=== PATIENT | female | born 1960 | race Caucasian/White ===

== ENCOUNTER 2017-04-15 15:24 | Observation (INO) | payer MEDICAID ==
[2017-04-15 15:24] VITALS: BMI 34.5
--- NOTE | 2017-04-15 16:30 | ED PDOC ---
HPI: General Adult Time Seen by Provider: 04/15/17 15:59 Chief Complaint (Nursing): Chest Pain Chief Complaint (Provider): headache History Per: Patient History/Exam Limitations: no limitations Additional Complaint(s): 56yo female w/ hx chronic back pain, asthma comes to the ED reporting headache for 1 week. Also reports chest pain last night with associated intermittent whole body numbness and dry mouth. No fever, nausea or vomit. Past Medical History Reviewed: Historical Data, Nursing Documentation, Vital Signs Vital Signs: Last Vital Signs Temp 98.4 F 04/16/17 12:08 Pulse 86 04/16/17 12:08 Resp 18 04/16/17 12:08 BP 108/66 04/16/17 12:08 Pulse Ox 96 04/16/17 12:08 - Medical History PMH: Asthma, Back Problems, Gastritis, HTN - Surgical History Surgical History: Back Surgery, Cholecystectomy, Hernia Repair, Tonsillectomy - Family History Family History: States: Unknown Family Hx - Social History Current smoker - smoking cessation education provided: No Alcohol: None Drugs: Denies - Home Medications Home Medications: Ambulatory Orders Medication Instructions Recorded Albuterol HFA [Ventolin HFA 90 2 puff IH Q4H PRN 04/15/17 mcg/actuation (8 g)] Cyclobenzaprine [Flexeril] 10 mg PO BID 04/15/17 DULoxetine [Cymbalta] 30 mg PO HS 04/15/17 Diclofenac Sodium [Voltaren] 50 mg PO BID PRN 04/15/17 Fluticasone/Salmeterol 250/50 1 puff IH Q12H 04/15/17 [Advair Diskus 250/50] Gabapentin [Neurontin] 300 mg PO BID 04/15/17 Lisinopril [Zestril] 10 mg PO DAILY 04/15/17 Omeprazole 40 mg PO DAILY 04/15/17 oxyCODONE/Acetaminophen [Percocet 1 tab PO DAILY PRN 04/15/17 5/325 mg Tab] - Allergies Allergies/Adverse Reactions: Allergies Allergy/AdvReac Type Severity Reaction Status Date / Time latex Allergy RASH Verified 04/15/17 15:32 Review of Systems ROS Statement: Except As Marked, All Systems Reviewed And Found Negative Constitutional: Negative for: Fever ENT: Positive for: Other (dry mouth) Cardiovascular: Positive for: Chest Pain Gastrointestinal: Negative for: Nausea, Vomiting Neurological: Positive for: Weakness, Headache Physical Exam - Reviewed Nursing Documentation Reviewed: Yes Vital Signs Reviewed: Yes - Physical Exam Appears: Positive for: Well, Non-toxic, No Acute Distress Head Exam: Positive for: ATRAUMATIC, NORMAL INSPECTION, NORMOCEPHALIC Skin: Positive for: Warm, Dry Eye Exam: Positive for: EOMI, PERRL Cardiovascular/Chest: Positive for: Regular Rate, Rhythm Respiratory: Positive for: Normal Breath Sounds. Negative for: Rales, Rhonchi, Wheezing Gastrointestinal/Abdominal: Positive for: Soft. Negative for: Tenderness Extremity: Positive for: Normal ROM Neurologic/Psych: Positive for: Alert, Oriented - Laboratory Results Result Diagrams: 04/16/17 05:25 04/16/17 05:25 - ECG ECG: Positive for: Interpreted By Me, Viewed By Me ECG Rhythm: Positive for: Sinus Rhythm. Negative for: ST/T Changes Rate: 90 O2 Sat by Pulse Oximetry: 99 (RA) Pulse Ox Interpretation: Normal Medical Decision Making Medical Decision Makin CT Head w/o, CXR, Labs reassess. [address] cueva ending CT head result, reassessment. Disposition - Clinical Impression Clinical Impression: Chest pain - Patient ED Disposition Is Patient to be Admitted: Transfer of Care - Disposition Disposition: Transfer of Care Disposition Time: 17:00 Condition: STABLE Patient Signed Over To: Sonya Cueva Additional Comments - Additional Comments Additional Comments: Scribe Attestation: Documented by Robert Barbour acting as a scribe for Sree Bridges MD. Provider Scribe Attestation: All medical record entries made by the Scribe were at my direction and personally dictated by me. I have reviewed the chart and agree that the record accurately reflects my personal performance of the history, physical exam, medical decision making, and the department course for this patient. I have also personally directed, reviewed, and agree with the discharge instructions and disposition.
[2017-04-15 16:38] LABS: BASO # 0.1 K/uL (0.0-0.2); BASO % 0.9 % (0.0-2.0); EOS # 0.3 K/uL (0.0-0.7); EOS % 3.4 % (0.0-4.0); LYMPH # 2.5 K/uL (1.0-4.3); LYMPH % 26.9 % (20.0-40.0); MEAN CELL VOLUME 87.5 fl (81.0-99.0); MEAN CORPUSCULAR HGB CONC 33.1 g/dL (33.0-37.0); MEAN PLATELET VOLUME 9.1 fl (7.2-11.7); MONO # 0.7 K/uL (0.0-0.8); MONO % 7.1 % (0.0-10.0); NEUT # 5.8 K/uL (1.8-7.0); NEUT % 61.7 % (50.0-75.0); RED CELL DISTRIBUTION WIDTH 13.3 % (11.5-14.5); WHITE BLOOD COUNT 9.5 K/uL (4.8-10.8)
[2017-04-15 16:45] LABS: ALB/GLOB RATIO 1.5 (1.0-2.1); ALKALINE PHOSPHATASE 100 U/L (38-126); ALT/SGPT 37 U/L (9-52); AST/SGOT 26 U/L (14-36); BILIRUBIN,TOTAL 0.3 mg/dl (0.2-1.3); BLOOD UREA NITROGEN 14 mg/dl (7-17); CALCIUM 9.3 mg/dL (8.4-10.2); CARBON DIOXIDE 28 mmol/L (22-30); CHLORIDE 104 mmol/L (98-107); GFR AFRICAN-AMERICAN > 60; GLUCOSE,RANDOM 118 mg/dL (65-105); POTASSIUM 4.1 MMOL/L (3.6-5.0); SODIUM 142 mmol/l (132-148); TOTAL PROTEIN 7.2 G/DL (6.3-8.2)
--- NOTE | 2017-04-15 16:51 | ED PDOC ---
- Laboratory Results Result Diagrams: 04/15/17 16:20 - ECG O2 Sat by Pulse Oximetry: 99 (RA) Pulse Ox Interpretation: Normal Medical Decision Making Medical Decision Makin:00 Patient signed out to provider from Sree Bridges MD, pending labs, imaging studies, and reevaluation. Scribe Attestation: Documented by Robert Marquez, acting as a scribe for Angel Valentin MD. Provider Scribe Attestation: All medical record entries made by the Scribe were at my direction and personally dictated by me. I have reviewed the chart and agree that the record accurately reflects my personal performance of the history, physical exam, medical decision making, and the department course for this patient. I have also personally directed, reviewed, and agree with the discharge instructions and disposition.
--- NOTE | 2017-04-15 17:27 | CT ---
PROCEDURE: CT HEAD WITHOUT CONTRAST. HISTORY: headache COMPARISON: None available. TECHNIQUE: Axial computed tomography images were obtained through the head/brain without intravenous contrast. Radiation dose: Total exam DLP = 757.21 mGy-cm. This CT exam was performed using one or more of the following dose reduction techniques: Automated exposure control, adjustment of the mA and/or kV according to patient size, and/or use of iterative reconstruction technique. FINDINGS: HEMORRHAGE: No acute parenchymal, subarachnoid or extra-axial hemorrhage. Hemorrhage. BRAIN: No mass effect or edema. No significant atrophy or chronic microvascular ischemic changes. Minor vascular calcifications both carotid siphons VENTRICLES: No evidence of obstructive hydrocephalus CALVARIUM: Calvarium appears grossly intact. PARANASAL SINUSES: Unremarkable as visualized. No significant inflammatory changes. MASTOID AIR CELLS: Unremarkable as visualized. No inflammatory changes. OTHER FINDINGS: None. IMPRESSION: No acute intracranial hemorrhage.
--- NOTE | 2017-04-15 17:39 | ED PDOC ---
- Laboratory Results Result Diagrams: 04/15/17 16:20 04/15/17 16:20 - ECG O2 Sat by Pulse Oximetry: 99 (RA) - CT Scan/US CT head Other Rad Studies (CT/US): Radiology Report Reviewed (No acute intracranial hemorrhage.) Disposition - Clinical Impression Clinical Impression: Chest pain - POA Present On Arrival: None Core Measure Indicators: Chest Pain - Disposition Disposition: Hospitalized as Observation Patient Disposition Time: 17:39 Condition: STABLE Addendum Addendum: 04/15/17 17:00 Pt signed out by Dr. Bridges pending CT.
[2017-04-15] MEDS ORDERED: Oxycodone/Acetaminophen 5/325 mg Tab PO PRN (21:05)
[2017-04-15] MEDS: Fluticasone-Salmeterol 250-50mcg Diskus IH SCH (22:01)
[2017-04-16 04:47] VITALS: RESP 18
[2017-04-16] MEDS ORDERED: Pneumococcal 23-Valent Vaccine IM ONE (06:00)
[2017-04-16 06:59] LABS: BASO # 0.1 K/uL (0.0-0.2); BASO % 0.7 % (0.0-2.0); EOS # 0.4 K/uL (0.0-0.7); EOS % 3.7 % (0.0-4.0); LYMPH # 3.2 K/uL (1.0-4.3); LYMPH % 32.7 % (20.0-40.0); MEAN CELL VOLUME 87.9 fl (81.0-99.0); MEAN PLATELET VOLUME 9.4 fl (7.2-11.7); MONO # 0.7 K/uL (0.0-0.8); MONO % 7.1 % (0.0-10.0); NEUT # 5.5 K/uL (1.8-7.0); NEUT % 55.8 % (50.0-75.0); NRBC % 0.1 % (0.0-0.0); RED CELL DISTRIBUTION WIDTH 13.7 % (11.5-14.5); WHITE BLOOD COUNT 9.8 K/uL (4.8-10.8)
[2017-04-16 07:28] LABS: ALB/GLOB RATIO 1.5 (1.0-2.1); ALKALINE PHOSPHATASE 87 U/L (38-126); ALT/SGPT 36 U/L (9-52); AST/SGOT 40 U/L (14-36); BILIRUBIN,TOTAL 0.6 mg/dl (0.2-1.3); BLOOD UREA NITROGEN 14 mg/dl (7-17); CALCIUM 9.2 mg/dL (8.4-10.2); CARBON DIOXIDE 27 mmol/L (22-30); CHLORIDE 105 mmol/L (98-107); CHOLESTEROL 183 mg/dL (0-199); GFR AFRICAN-AMERICAN > 60; GLUCOSE,RANDOM 98 mg/dL (65-105); SODIUM 143 mmol/l (132-148)
[2017-04-16 08:01] LABS: T4 6.45 ug/dl (5.5-11.0)
[2017-04-16 08:15] LABS: THYROID STIMULATING HORMONE 1.26 mIU/ML (0.46-4.68)
--- NOTE | 2017-04-16 08:40 | CP.PCM.CON ---
History of Present Illness - History of Present Illness History of Present Illness: Full Note Dictated. Atypical chest pain No evidence of ACS Hypertension H/O GERD Chr Low Back Pain ( following a fall) May go home and be managed as an out pt. Past Patient History - Infectious Disease Hx of Infectious Diseases: None - Past Medical History & Family History Past Medical History?: Yes - Past Social History Smoking Status: Never Smoked - CARDIAC Hx Hypertension: Yes - PULMONARY Hx Asthma: Yes - MUSCULOSKELETAL/RHEUMATOLOGICAL Hx Falls: Yes - GASTROINTESTINAL Hx Gastritis: Yes - PSYCHIATRIC Hx Substance Use: No - SURGICAL HISTORY Hx Cholecystectomy: Yes Hx Tonsillectomy: Yes - ANESTHESIA Hx Anesthesia: Yes Hx Anesthesia Reactions: No Hx Malignant Hyperthermia: No Meds Allergies/Adverse Reactions: Allergies Allergy/AdvReac Type Severity Reaction Status Date / Time latex Allergy RASH Verified 04/15/17 15:32 - Medications Medications: Current Medications Cyclobenzaprine HCl (Flexeril) 10 mg PO BID [facility] Last Admin: 04/15/17 22:00 Dose: 10 mg Duloxetine HCl (Cymbalta) 30 mg PO HS [facility] Last Admin: 04/15/17 22:00 Dose: 30 mg Gabapentin (Neurontin) 300 mg PO BID [facility] Last Admin: 04/15/17 22:00 Dose: 300 mg Lisinopril (Zestril) 10 mg PO DAILY [facility] Oxycodone/Acetaminophen (Percocet 5/325 Mg Tab) 1 tab PO Q6 PRN PRN Reason: Pain, severe (8-10) Stop: 04/18/17 22:01 Last Admin: 04/15/17 21:59 Dose: 1 tab Pantoprazole Sodium (Protonix Ec Tab) 40 mg PO DAILY [facility] Fluticasone/Salmeterol (Advair Diskus 250/50) 1 puff IH Q12H [facility] Last Admin: 04/15/17 22:01 Dose: 1 puff Results - Vital Signs Recent Vital Signs: Last Vital Signs Temp 98.5 F 04/16/17 07:57 Pulse 81 04/16/17 07:57 Resp 18 04/16/17 07:57 BP 108/74 04/16/17 07:57 Pulse Ox 97 04/16/17 07:57 - Labs Result Diagrams: 04/16/17 05:25 04/16/17 05:25 Labs: Laboratory Results - last 24 hr 04/16/17 04/16/17 05:25 05:25 WBC 9.8 RBC 4.67 Hgb 13.5 Hct 41.0 MCV 87.9 MCH 29.0 MCHC 33.0 RDW 13.7 Plt Count 226 MPV 9.4 Neut % (Auto) 55.8 Lymph % (Auto) 32.7 Barber % (Auto) 7.1 Eos % (Auto) 3.7 Baso % (Auto) 0.7 Neut # 5.5 Lymph # 3.2 Barber # 0.7 Eos # 0.4 Baso # 0.1 Sodium 143 Potassium 5.0 Chloride 105 Carbon Dioxide 27 Anion Gap 16 BUN 14 Creatinine 0.7 Est GFR ( Amer) > 60 Est GFR (Non-Af Amer) > 60 Random Glucose 98 Calcium 9.2 Total Bilirubin 0.6 AST 40 H D ALT 36 Alkaline Phosphatase 87 Troponin I < 0.0120 Total Protein 7.0 Albumin 4.2 Globulin 2.8 Albumin/Globulin Ratio 1.5 Triglycerides 176 H Cholesterol 183 LDL Cholesterol Direct 96 HDL Cholesterol 52 Thyroxine (T4) 6.45 TSH 3rd Generation 1.26
[2017-04-16 08:53] LABS: RBC URINE 4 /hpf (0-3); URINE BILIRUBIN NEGATIVE (NEGATIVE); URINE BLOOD SMALL (NEGATIVE); URINE COLOR YELLOW (YELLOW); URINE GLUCOSE (UA) NEG (Normal); URINE KETONE NEGATIVE (NEGATIVE); URINE LEUKOCYTE ESTERASE NEG Leu/uL (Negative); URINE PROTEIN NEGATIVE (NEGATIVE); URINE UROBILINOGEN 0.2-1.0 mg/dL (0.2-1.0); WBC URINE 2 /hpf (0-5)
[2017-04-16] MEDS ORDERED: Pantoprazole 40 mg EC Tab PO SCH (09:00)
[2017-04-16] MEDS: Fluticasone-Salmeterol 250-50mcg Diskus IH SCH (09:16)
--- NOTE | 2017-04-16 09:36 | CON ---
DATE: 04/16/2017 She is hospitalized under Dr. Marquez's care in room 402, bed 1. HISTORY OF PRESENT ILLNESS: This 56-year-old female came into the hospital after experiencing left p ectoral ache and numbness in the left arm, quite unconnected to any physical activity. The patient i ndicated that she is physically not very active following a fall which has injured her lower back, re quiring her to take narcotic analgesics every now and then. She has a long history of hypertension a nd is chronically overweight. She denies any history of myocardial infarction or congestive cardiac failure. She indicates, 3-4 years back, she had undergone a stress test, which did not show any evid ence of heart disease. She has had left pectoral aches occasionally in the past, but none of them ar e connected to physical activity. The patient takes Prilosec for GERD. She denies any history of di abetes. Denies any history of smoking and denies any family history of vascular disease. PHYSICAL EXAMINATION: VITAL SIGNS: Shows a middle-aged, overweight female who is able to lie virtually flat in bed and rory athe comfortably at 16-18 breaths per minute, has a heart rate of 74 beats per minute, regular and a blood pressure of 124/80 mmHg. NECK: Her jugular venous pressure was not elevated. EXTREMITIES: There was no edema of the lower extremities. The pedal pulses were well felt. There w ere no carotid bruits. Thyroid and breasts did not reveal anything abnormal. HEART: The apex was not palpable. The first and second heart sounds were normal. There was no murm ur, no gallop. LUNGS: No rales. ABDOMEN: Soft. Liver and spleen were not palpable. LABORATORY DATA: Her electrocardiogram showed sinus rhythm with a normal EKG pattern. Her troponin levels drawn twice 8 hours apart were negative for any evidence of myocyte injury. Her BUN and creat inine were 14 and 0.6 mg%. Her electrolytes were normal. Her liver profile showed an AST and ALT of 26 and 37 units, respectively at admission. LDL cholesterol was 96 mg% and HDL cholesterol was 52 m g%. Her thyroid profile was normal. IMPRESSION: At this time is atypical chest pain, no evidence of acute coronary syndrome in a patient with known gastroesophageal reflux, history of chronic low back pain following a fall and exogenous obesity and a history of hypertension. There is no evidence of acute coronary syndrome here and the patient may be allowed to return home to be managed as an outpatient. Mina Tineo MD cc: 23 TT: 04/16/2017 09:36:06 Confirmation # [id number] Dictation # [id number] tn
--- NOTE | 2017-04-16 11:04 | RAD ---
HISTORY: chest pain COMPARISON: 07/13/2014. TECHNIQUE: Chest PA and lateral FINDINGS: LUNGS: No active pulmonary disease. PLEURA: No significant pleural effusion identified. No pneumothorax apparent. CARDIOVASCULAR: No radiographic findings to suggest acute or significant cardiovascular disease. OSSEOUS STRUCTURES: No significant abnormalities. VISUALIZED UPPER ABDOMEN: Normal. OTHER FINDINGS: None. IMPRESSION: No active disease. No significant interval change compared to the prior examination(s).
[2017-04-16 12:09] VITALS: BP 108/66; TEMP 98.4
--- NOTE | 2017-04-16 14:29 | CP.PCM.HP ---
History of Present Illness - History of Present Illness History of Present Illness: CC: Chest pain. 56 y/o F, came to [facility] [place] for evaluation of moderate Left side chest pain, intensity 4:10, tightness type, associated to L arm numbness, onset night [employer] with no relief, non radiated pain. Worsening symptoms: Headache, constant, moderate to severe intensity 8:10 for one week [employer], chronic back pain 2nd to Hx of fall. Pt denied: LOC, dizziness, fever, chills, n/v/d, abdominal pain, SOB, cough, urinary symptoms, sick contact, recent travel. PMHx: Chronic Back pain, Migraine, HTN, GERD, Asthma, Depression, Overweigh. CXR shows: No active disease. CT Head: No acute intracranial hemorrhage. Present on Admission - Present on Admission Any Indicators Present on Admission: No Review of Systems - Constitutional Constitutional: Headache - EENT Eyes: Other (negative) Ears: Other (negative) Nose/Mouth/Throat: Other (negative) - Cardiovascular Cardiovascular: Chest Pain - Respiratory Respiratory: Other (negative) - Gastrointestinal Gastrointestinal: Other (negative) - Genitourinary Genitourinary: Other (negative) - Musculoskeletal Musculoskeletal: Back Pain - Integumentary Integumentary: Other (negative) - Neurological Neurological: Numbness (mild L arm), Other (negative) - Psychiatric Psychiatric: Other (negative) - Endocrine Endocrine: Other (negative) Past Patient History - Infectious Disease Hx of Infectious Diseases: None - Past Medical History & Family History Past Medical History?: Yes Pertinent Family History: Unknown - Past Social History Smoking Status: Never Smoked Alcohol: None Drugs: Denies Home Situation {Lives}: With Family - CARDIAC Hx Cardiac Disorders: Yes Hx Hypertension: Yes - PULMONARY Hx Respiratory Disorders: Yes Hx Asthma: Yes - NEUROLOGICAL Hx Neurological Disorder: No - HEENT Hx HEENT Problems: No - RENAL Hx Chronic Kidney Disease: No - ENDOCRINE/METABOLIC Other/Comment: Overweight BMI 34.4 - HEMATOLOGICAL/ONCOLOGICAL Hx Blood Disorders: No - INTEGUMENTARY Hx Dermatological Problems: No - MUSCULOSKELETAL/RHEUMATOLOGICAL Hx Musculoskeletal Disorders: Yes Hx Back Pain: Yes Hx Falls: Yes - GASTROINTESTINAL Hx Gastrointestinal Disorders: Yes Hx Gastritis: Yes - GENITOURINARY/GYNECOLOGICAL Hx Genitourinary Disorders: No - PSYCHIATRIC Hx Psychophysiologic Disorder: No Hx Substance Use: No - SURGICAL HISTORY Hx Surgeries: Yes (Back surgery) Hx Cholecystectomy: Yes Hx Tonsillectomy: Yes Other/Comment: Hernia repair. - ANESTHESIA Hx Anesthesia: Yes Hx Anesthesia Reactions: No Hx Malignant Hyperthermia: No Meds Allergies/Adverse Reactions: Allergies Allergy/AdvReac Type Severity Reaction Status Date / Time latex Allergy RASH Verified 04/15/17 15:32 Physical Exam - Constitutional Appears: No Acute Distress - Head Exam Head Exam: NORMAL INSPECTION - Eye Exam Eye Exam: PERRL - ENT Exam ENT Exam: Normal Oropharynx - Neck Exam Neck exam: Positive for: Normal Inspection - Respiratory Exam Respiratory Exam: NORMAL BREATHING PATTERN - Cardiovascular Exam Cardiovascular Exam: REGULAR RHYTHM - GI/Abdominal Exam GI & Abdominal Exam: Normal Bowel Sounds, Soft - Extremities Exam Extremities exam: Positive for: normal inspection - Back Exam Back exam: NORMAL INSPECTION - Neurological Exam Neurological exam: Alert, Oriented x3 Additional comments: No motor sensory deficit. - Psychiatric Exam Psychiatric exam: Normal Mood - Skin Skin Exam: Warm Results - Vital Signs Recent Vital Signs: Last Vital Signs Temp 98.4 F 04/16/17 12:08 Pulse 86 04/16/17 12:08 Resp 18 04/16/17 12:08 BP 108/66 04/16/17 12:08 Pulse Ox 96 04/16/17 12:08 reviewed J.PJarad - Labs Result Diagrams: 04/16/17 05:25 04/16/17 05:25 Labs: Laboratory Results - last 24 hr 04/16/17 04/16/17 04/16/17 04:30 05:25 05:25 WBC 9.8 RBC 4.67 Hgb 13.5 Hct 41.0 MCV 87.9 MCH 29.0 MCHC 33.0 RDW 13.7 Plt Count 226 MPV 9.4 Neut % (Auto) 55.8 Lymph % (Auto) 32.7 Loup % (Auto) 7.1 Eos % (Auto) 3.7 Baso % (Auto) 0.7 Neut # 5.5 Lymph # 3.2 Loup # 0.7 Eos # 0.4 Baso # 0.1 Sodium 143 Potassium 5.0 Chloride 105 Carbon Dioxide 27 Anion Gap 16 BUN 14 Creatinine 0.7 Est GFR ( Amer) > 60 Est GFR (Non-Af Amer) > 60 Random Glucose 98 Calcium 9.2 Total Bilirubin 0.6 AST 40 H D ALT 36 Alkaline Phosphatase 87 Troponin I < 0.0120 Total Protein 7.0 Albumin 4.2 Globulin 2.8 Albumin/Globulin Ratio 1.5 Triglycerides 176 H Cholesterol 183 LDL Cholesterol Direct 96 HDL Cholesterol 52 Thyroxine (T4) 6.45 TSH 3rd Generation 1.26 Urine Color Yellow Urine Clarity Clear Urine pH 6.0 Ur Specific Goldsmith 1.016 Urine Protein Negative Urine Glucose (UA) Neg Urine Ketones Negative Urine Blood Small Urine Nitrate Negative Urine Bilirubin Negative Urine Urobilinogen 0.2-1.0 Ur Leukocyte Esterase Neg Urine RBC (Auto) 4 H Urine Microscopic WBC 2 Ur Squamous Epith Cells 2 reviewed J.P. - EKG Data EKG comments: Reviewed J.P. - Imaging and Cardiology Chest x-ray Status: Report reviewed by me (Franny) CT scan - head Status: Report reviewed by me (Franny) Assessment & Plan (1) Chest pain, atypical Status: Acute Priority: High (2) Chronic back pain Status: Chronic Priority: High (3) Head ache Status: Chronic Priority: High (4) Asthma Status: Chronic Priority: Medium (5) Depression Status: Chronic Priority: Medium - Assessment and Plan (Free Text) Plan: Continue Zestril, Percocet, Flexeril, Advair, Cardiology consult appreciated. - Date & Time Date: 04/16/17
--- NOTE | 2017-04-16 16:47 | CARD ---
APPROVED REPORT EKG Measurement Heart [id number] <Conclusion> Sinus rhythm with marked sinus arrhythmia Otherwise normal ECG
[2017-04-16 17:36] VITALS: PULSE 90; O2SAT 99
--- NOTE | 2017-04-17 11:32 | CARD ---
APPROVED REPORT EXAM: Two-dimensional and M-mode echocardiogram with Doppler and color Doppler. Other Information Quality : FairRhythm : INDICATION Chest Pain 2D DIMENSIONS IVSd0.83 (0.7-1.1cm)LVDd3.37 (3.9-5.9cm) LVOT Diameter1.74 (1.8-2.4cm)PWd0.89 (0.7-1.1cm) IVSs1.21 (0.8-1.2cm)LVDs2.43 (2.5-4.0cm) FS (%) 27.8 %PWs1.43 (0.8-1.2cm) M-Mode DIMENSIONS Left Atrium (MM)3.24 (2.5-4.0cm)IVSd1.21 (0.7-1.1cm) Aortic Root3.09 (2.2-3.7cm)LVDd5.23 (4.0-5.6cm) Aortic Cusp Exc.1.96 (1.5-2.0cm)PWd1.03 (0.7-1.1cm) IVSs1.78 cmFS (%) 42 % LVDs3.02 (2.0-3.8cm)PWs1.60 cm Aortic Valve AoV Peak Hucwlhec546.5cm/sAoV VTI29.0cmAO Peak GR.9mmHg LVOT Peak Gjgmggok376.1cm/sLVOT VTI23.61cmAO Mean GR.5mmHg DOROTHY (VMAX)0.57hi5YXY (VTI)1.04cm2 Mitral Valve MV E Cezddfui25.1cm/sMV DECEL [id number] A Mwvbtzep812.6cm/s MV GHV97jeS/A ratio0.8MVA (PHT)2.77cm2 TDI Lateral E' Peak V9.45cm/sMedial E' Peak V10.35cm/sE/Lateral E'8.4 E/Medial E'7.6 Pulmonary Valve PV Peak Ltpglwyt26.5cm/s Tricuspid Valve TR Peak Trcezwuf622jq/sRAP MPMUIBFL53ioLsJI Peak Gr.22mmHg [id number] LEFT VENTRICLE The left ventricle is normal size. There is normal left ventricular wall thickness. The left ventricular function is normal. The left ventricular ejection fraction is within the normal range. The Ejection Fraction is 55-60%. There is normal LV segmental wall motion. The left ventricular diastolic function is normal. No left ventricle thrombus noted on this study. There is no mass noted in the left ventricle. RIGHT VENTRICLE The right ventricle is normal size. There is normal right ventricular wall thickness. The right ventricular systolic function is normal. ATRIA The left atrium size is normal. The right atrium size is normal. The interatrial septum is intact with no evidence for an atrial septal defect. AORTIC VALVE The aortic valve is normal in structure and function. No aortic regurgitation is present. There is no aortic valvular stenosis. There is no aortic valvular vegetation. MITRAL VALVE The mitral valve is normal in structure and function. There is no evidence of mitral valve prolapse. There is no mitral valve stenosis. There is no mitral valve regurgitation noted. TRICUSPID VALVE The tricuspid valve is normal in structure and function. There is no tricuspid valve regurgitation noted. There is no tricuspid valve prolapse or vegetation. There is no tricuspid valve stenosis. PULMONIC VALVE The pulmonary valve is normal in structure and function. There is no pulmonic valvular regurgitation. There is no pulmonic valvular stenosis. GREAT VESSELS The aortic root is normal in size. The IVC is normal in size and collapses >50% with inspiration. PERICARDIAL EFFUSION The pericardium appears normal. There is no pleural effusion. <Conclusion> The left ventricle is normal size. The left ventricular function is normal. The left ventricular ejection fraction is within the normal range. The Ejection Fraction is 55-60%.
== END 2017-04-16 15:50 | disposition home or self-care (01) ==
LOC: H.ER 15:24 → H.ERHOLD 17:35 → H.TEL 18:48
PROVIDERS: ADMIT Internal Medicine Pulmonary Disease; ATTEND Internal Medicine Pulmonary Disease
DX: R07.89 Other chest pain (principal); G89.29 Other chronic pain; I10 Essential (primary) hypertension; K21.9 Gastro-esophageal reflux disease without esophagitis; J45.909 Unspecified asthma, uncomplicated; F32.9 Major depressive disorder, single episode, unspecified; M54.5 Low back pain; K29.70 Gastritis, unspecified, without bleeding; E66.09 Other obesity due to excess calories; Z68.34 Body mass index [BMI] 34.0-34.9, adult; R51 Headache; Z23 Encounter for immunization; Z79.51 Long term (current) use of inhaled steroids; Z91.040 Latex allergy status; Z91.81 History of falling

== ENCOUNTER 2017-05-20 16:48 | Emergency (ER) | payer MEDICAID ==
[2017-05-20 16:49] VITALS: BMI 34.5
[2017-05-20 17:13] VITALS: BP 113/58; PULSE 79; RESP 18; TEMP 97.6; O2SAT 96
[2017-05-20] MEDS ORDERED: Sodium Chloride 0.9% 1,000 ML IV STA (18:07)
[2017-05-20 18:25] LABS: HEMOGLOBIN 14.2 g/dL (12.0-16.0); MEAN CELL VOLUME 87.6 fl (81.0-99.0); MEAN CORPUSCULAR HEMOGLOBIN 29.3 pg (27.0-31.0); MEAN CORPUSCULAR HGB CONC 33.5 g/dL (33.0-37.0); RBC 4.85 Mil/uL (3.80-5.20); RED CELL DISTRIBUTION WIDTH 13.5 % (11.5-14.5); WHITE BLOOD COUNT 9.8 K/uL (4.8-10.8)
[2017-05-20 18:38] LABS: ALB/GLOB RATIO 1.3 (1.0-2.1); ALBUMIN 4.5 g/dL (3.5-5.0); ALT/SGPT 53 U/L (9-52); AST/SGOT 36 U/L (14-36); BLOOD UREA NITROGEN 17 mg/dl (7-17); CALCIUM 9.7 mg/dL (8.4-10.2); GFR AFRICAN-AMERICAN > 60; GFR NON-AFRICAN AMERICAN > 60
[2017-05-20 19:01] LABS: SQUAMOUS EPITHIAL 1 /hpf (0-5)
[2017-05-20 19:10] LABS: URINE CLARITY Clear (Clear); URINE COLOR YELLOW (YELLOW)
[2017-05-20 19:11] LABS: URINE BILIRUBIN NEGATIVE (NEGATIVE); URINE BLOOD TRACE (NEGATIVE); URINE GLUCOSE (UA) NEGATIVE (Normal)
[2017-05-20 19:12] LABS: URINE LEUKOCYTE ESTERASE NEGATIVE Leu/uL (Negative); URINE NITRATE NEGATIVE (NEGATIVE); URINE PROTEIN TRACE mg/dL (NEGATIVE); URINE UROBILINOGEN 0.2 mg/dL (0.2-1.0)
--- NOTE | 2017-05-20 19:34 | ED PDOC ---
HPI: Abdomen Time Seen by Provider: 05/20/17 17:41 Chief Complaint (Nursing): Abdominal Pain Chief Complaint (Provider): Right flank pain x 3 days History Per: Patient History/Exam Limitations: no limitations Onset/Duration Of Symptoms: Days Outside of [place] travel?: No Current Symptoms Are (Timing): Still Present Severity: Severe Pain Scale Rating Of: 8 Location Of Pain/Discomfort: Other (Right flank, (-) N/V/D ) Quality Of Discomfort: Sharp, Dull Associated Symptoms: denies: Nausea, Vomiting, Loss Of Appetite, Urinary Symptoms Exacerbating Factors: None Alleviating Factors: None Additional Complaint(s): PT reports history of back pain. STates it feels different. No N/V/D. No fever. Past Medical History Reviewed: Historical Data, Nursing Documentation, Vital Signs Vital Signs: Last Vital Signs Temp 97.6 F 05/20/17 17:08 Pulse 79 05/20/17 17:08 Resp 18 05/20/17 17:08 BP 113/58 L 05/20/17 17:08 Pulse Ox 96 05/20/17 19:34 - Medical History PMH: Asthma, Back Problems, Gastritis, HTN Denies: Chronic Kidney Disease - Surgical History Surgical History: Back Surgery, Cholecystectomy, Hernia Repair, Tonsillectomy - Family History Family History: States: Unknown Family Hx - Living Arrangements Living Arrangements: With Family - Social History Current smoker - smoking cessation education provided: No Alcohol: None Drugs: Denies - Home Medications Home Medications: Ambulatory Orders Medication Instructions Recorded Albuterol HFA [Ventolin HFA 90 2 puff IH Q4H PRN 04/15/17 mcg/actuation (8 g)] Cyclobenzaprine [Flexeril] 10 mg PO BID 04/15/17 DULoxetine [Cymbalta] 30 mg PO HS 04/15/17 Diclofenac Sodium [Voltaren] 50 mg PO BID PRN 04/15/17 Fluticasone/Salmeterol 250/50 1 puff IH Q12H 04/15/17 [Advair Diskus 250/50] Gabapentin [Neurontin] 300 mg PO BID 04/15/17 Lisinopril [Zestril] 10 mg PO DAILY 04/15/17 Omeprazole 40 mg PO DAILY 04/15/17 oxyCODONE/Acetaminophen [Percocet 1 tab PO DAILY PRN 04/15/17 5/325 mg Tab] - Allergies Allergies/Adverse Reactions: Allergies Allergy/AdvReac Type Severity Reaction Status Date / Time latex Allergy RASH Verified 04/15/17 15:32 Review of Systems ROS Statement: Except As Marked, All Systems Reviewed And Found Negative Constitutional: Negative for: Fever Gastrointestinal: Positive for: Other. Negative for: Nausea, Vomiting, Abdominal Pain Physical Exam - Reviewed Nursing Documentation Reviewed: Yes Vital Signs Reviewed: Yes - Physical Exam Appears: Positive for: Well, Non-toxic, No Acute Distress Head Exam: Positive for: ATRAUMATIC, NORMAL INSPECTION, NORMOCEPHALIC Skin: Positive for: Normal Color, Warm, DRY Eye Exam: Positive for: Normal appearance ENT: Positive for: Normal ENT Inspection Neck: Positive for: Normal, Painless ROM Cardiovascular/Chest: Positive for: Regular Rate, Rhythm Respiratory: Positive for: Normal Breath Sounds. Negative for: Accessory Muscle Use, Respiratory Distress Gastrointestinal/Abdominal: Positive for: Normal Exam, Bowel Sounds, Soft. Negative for: Tenderness Back: Positive for: Normal Inspection. Negative for: L CVA Tenderness, R CVA Tenderness Extremity: Positive for: Normal ROM Neurologic/Psych: Positive for: Alert, Oriented - Laboratory Results Result Diagrams: 05/20/17 18:10 05/20/17 18:10 - ECG O2 Sat by Pulse Oximetry: 96 Medical Decision Making Medical Decision Making: Labs normal - BUN creatinine normal (+) hematuria CT scan: Possible passed stone PT reports feeling better on re-evaluation. PT states she does have percocet at home for severe pain. Disposition - Clinical Impression Clinical Impression: Chronic back pain, Kidney stone - Patient ED Disposition Is Patient to be Admitted: No Counseled Patient/Family Regarding: Diagnosis, Need For Followup, Rx Given - Disposition Referrals: Hubert Araiza MD [Primary Care Provider] - Disposition: Routine/Home Disposition Time: 20:27 Condition: GOOD Instructions: Kidney Stones (ED)
--- NOTE | 2017-05-21 10:15 | CT ---
PROCEDURE: CT Abdomen and Pelvis without intravenous contrast HISTORY: right flank pain COMPARISON: 10/18/2016 TECHNIQUE: Without contrast.. Contrast Dose: 0 Radiation dose: Total exam DLP = 1027.24 mGy-cm. This CT exam was performed using one or more of the following dose reduction techniques: Automated exposure control, adjustment of the mA and/or kV according to patient size, and/or use of iterative reconstruction technique. FINDINGS: LOWER THORAX: Unremarkable. LIVER: Mild fatty diffuse infiltration of the liver. Normal contour. Normal size. No mass. No biliary dilatation. GALLBLADDER AND BILE DUCTS: Status post cholecystectomy. PANCREAS: Unremarkable. No gross lesion or ductal dilatation. SPLEEN: Unremarkable. ADRENALS: Unremarkable. No mass. KIDNEYS AND URETERS: Two adjacent small left renal calculi Conglomerately measuring approximately 6 mm. This is unchanged compared to examination of 10/18/2016. Parapelvic left renal cysts. No evidence of urinary tract obstruction. VASCULATURE: Unremarkable. No aortic aneurysm. BOWEL: Sigmoid diverticulosis without evidence of diverticulitis. No bowel obstruction. Scattered colonic diverticulae elsewhere. APPENDIX: Unremarkable. Normal appendix. PERITONEUM: Unremarkable. No free fluid. No free air. LYMPH NODES: Unremarkable. No enlarged lymph nodes. BLADDER: Unremarkable. REPRODUCTIVE: Postmenopausal uterus BONES: No fracture. Grade 1 anterolisthesis at L4-5 without evidence of spondylolysis. OTHER FINDINGS: None. IMPRESSION: Two small nonobstructing mid left renal calculi. Multiple small left parapelvic renal cysts. No evidence hydronephrosis or urinary tract obstruction. Mild fatty infiltration of the liver. Sigmoid diverticulosis without evidence of diverticulitis. Grade 1 spondylolisthesis at L4-5 without evidence of spondylolysis. Status post cholecystectomy. No additional abnormality. Preliminary interpretation of this examination was reported by [facility] at 7:30 p.m. on 05/20/2017. There is concurrence of this report with the preliminary interpretation.
== END 2017-05-20 20:45 | disposition home or self-care (01) ==
LOC: H.ER 16:48
DX: N20.0 Calculus of kidney (principal); G89.29 Other chronic pain; I10 Essential (primary) hypertension; Z90.49 Acquired absence of other specified parts of digestive tract; M54.9 Dorsalgia, unspecified

== ENCOUNTER 2017-06-11 18:54 | Emergency (ER) | payer MEDICAID ==
[2017-06-11 18:54] VITALS: BMI 34.5
[2017-06-11 19:24] VITALS: BP 117/67; PULSE 82; RESP 18; TEMP 98.9; O2SAT 99
--- NOTE | 2017-06-11 19:38 | ED PDOC ---
HPI: Back Time Seen by Provider: 06/11/17 19:25 Chief Complaint (Nursing): Back Pain Chief Complaint (Provider): Back Pain History Per: Patient History/Exam Limitations: no limitations Onset/Duration Of Symptoms: Days (x1) Current Symptoms Are (Timing): Still Present Additional Complaint(s): Yael Peter is a 56 year old female with a history of back problems that presents to the ED with a chief complaint of severe back pain that began last night. Patient states that she typically takes Percocet for her pain, but that she no longer has any, and came to the ED to obtain a prescription for more. Past Medical History Reviewed: Historical Data, Nursing Documentation, Vital Signs Vital Signs: Last Vital Signs Temp 98.9 F 06/11/17 19:22 Pulse 82 06/11/17 19:22 Resp 18 06/11/17 19:22 BP 117/67 06/11/17 19:22 Pulse Ox 99 06/11/17 19:22 - Medical History PMH: Asthma, Back Problems, Gastritis, HTN Denies: Chronic Kidney Disease - Surgical History Surgical History: Back Surgery, Cholecystectomy, Hernia Repair, Tonsillectomy - Family History Family History: States: Unknown Family Hx - Home Medications Home Medications: Ambulatory Orders Medication Instructions Recorded Albuterol HFA [Ventolin HFA 90 2 puff IH Q4H PRN 04/15/17 mcg/actuation (8 g)] Cyclobenzaprine [Flexeril] 10 mg PO BID 04/15/17 DULoxetine [Cymbalta] 30 mg PO HS 04/15/17 Diclofenac Sodium [Voltaren] 50 mg PO BID PRN 04/15/17 Fluticasone/Salmeterol 250/50 1 puff IH Q12H 04/15/17 [Advair Diskus 250/50] Gabapentin [Neurontin] 300 mg PO BID 04/15/17 Lisinopril [Zestril] 10 mg PO DAILY 04/15/17 Omeprazole 40 mg PO DAILY 04/15/17 oxyCODONE/Acetaminophen [Percocet 1 tab PO DAILY PRN 04/15/17 5/325 mg Tab] Ciprofloxacin HCl [Cipro] 500 mg PO BID #10 tab 05/20/17 diaZEpam [Valium] 5 mg PO Q6 PRN #4 tab 06/11/17 - Allergies Allergies/Adverse Reactions: Allergies Allergy/AdvReac Type Severity Reaction Status Date / Time latex Allergy RASH Verified 04/15/17 15:32 Review of Systems ROS Statement: Except As Marked, All Systems Reviewed And Found Negative Musculoskeletal: Positive for: Back Pain Physical Exam - Reviewed Nursing Documentation Reviewed: Yes Vital Signs Reviewed: Yes - Physical Exam Appears: Positive for: Non-toxic, No Acute Distress Head Exam: Positive for: ATRAUMATIC, NORMOCEPHALIC Skin: Positive for: Normal Color, Warm Neurologic/Psych: Positive for: Alert, Oriented. Negative for: Motor/Sensory Deficits - ECG O2 Sat by Pulse Oximetry: 99 (RA) Pulse Ox Interpretation: Normal - Progress ED Course And Treament: DILAUDID 0.5 MG IM X 1 DOSE Medical Decision Making Medical Decision Making: Impression: Back Pain Plan: * Dilaudid 0.5 mg IM * Zofran 4 mg IM * Reevaluation Scribe Attestation: Documented by Iesha Mendoza, acting as a scribe for Faby Green PA-C. Provider Scribe Attestation: All medical record entries made by the Scribe were at my direction and personally dictated by me. I have reviewed the chart and agree that the record accurately reflects my personal performance of the history, physical exam, medical decision making, and the department course for this patient. I have also personally directed, reviewed, and agree with the discharge instructions and disposition. Disposition - Clinical Impression Clinical Impression: Back strain - Patient ED Disposition Is Patient to be Admitted: No - Disposition Disposition: Routine/Home Disposition Time: 20:53 Condition: FAIR Prescriptions: diaZEpam [Valium] 5 mg PO Q6 PRN #4 tab PRN Reason: Muscle Spasm Instructions: Acute Low Back Pain (DC) Forms: [employer] (German)
[2017-06-11] MEDS ORDERED: HYDROmorphone 0.5 mg/0.5 ml ISec ONE (20:27)
== END 2017-06-11 21:40 | disposition home or self-care (01) ==
LOC: H.ER 18:54
DX: M54.9 Dorsalgia, unspecified (principal); I10 Essential (primary) hypertension

== ENCOUNTER 2017-08-12 20:25 | Emergency (ER) | payer MEDICAID ==
[2017-08-12 20:26] VITALS: BMI 34.5
[2017-08-12 20:43] VITALS: RESP 18
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
[2017-08-12] MEDS ORDERED: Sodium Chloride 0.9% 1,000 ML IV STA (21:55)
--- NOTE | 2017-08-12 22:59 | CT ---
EXAM: CT Head Without Intravenous Contrast EXAM DATE/TIME: 08/12/2017 9:54 PM CLINICAL HISTORY: 56 years old, female; Pain; Headache; Headache not specified; Additional info: Headache. Sent phy. Doc. TECHNIQUE: Axial computed tomography images of the head/brain without intravenous contrast. All CT scans at this facility use one or more dose reduction techniques, viz.: automated exposure control; ma/kV adjustment per patient size (including targeted exams where dose is matched to indication; i.e. head); or iterative reconstruction technique. Coronal and sagittal reformatted images were created and reviewed. COMPARISON: There are no prior studies for comparison. FINDINGS: Brain: Ventricles are normal in size and configuration. There is no midline shift. There is mild prominence of sulci and gyri. There are no intra-axial or extra-axial mass lesions or areas of hemorrhage. There are no abnormal fluid collections. Cook-white differentiation is maintained. Ventricles: See above. Bones: Cranial vault is intact. Soft tissues: unremarkable Sinuses: There is no acute sinusitis. Ears and mastoids: Middle ears and mastoids are unremarkable Orbits: Orbital contents are unremarkable. IMPRESSION: No acute intracranial abnormality
[2017-08-12 23:29] VITALS: BP 124/78; PULSE 56; TEMP 98; O2SAT 100
== END 2017-08-12 23:22 | disposition home or self-care (01) ==
LOC: H.ER 20:25
DX: S16.1XXA Strain of muscle, fascia and tendon at neck level, initial encounter (principal); V49.59XA Passenger injured in collision with other motor vehicles in traffic accident, initial encounter; Y92.410 Unspecified street and highway as the place of occurrence of the external cause; R51 Headache
CPT/HCPCS: 70450; 96374; 99285; J2765; J7040

== ENCOUNTER 2018-05-25 13:03 | Emergency (ER) | payer MEDICAID, MEDICARE ==
[2018-05-25 13:04] VITALS: BMI 34.5
[2018-05-25] MEDS ORDERED: Sodium Chloride 0.9% 1,000 ML IV STA (13:38)
[2018-05-25] MEDS ORDERED: Albuterol-Ipratrop 3 mg / 0.5 (3 ml) UD INH STA (13:38)
[2018-05-25] MEDS ORDERED: Albuterol-Ipratrop 3 mg / 0.5 (3 ml) UD ONE (13:52)
--- NOTE | 2018-05-25 14:01 | ED PDOC ---
HPI: CCC, URI, Sore Throat Time Seen by Provider: 05/25/18 13:28 Chief Complaint (Nursing): Cough, Cold, Congestion Chief Complaint (Provider): Cough History Per: Patient Have you had recent travel within the past 21 days to any of the following countries: [place], [place], [place] or [place]?: No Onset/Duration Of Symptoms: Days (x3) Current Symptoms Are (Timing): Still Present Location Of Pain: None Sick Contacts (Context): None Associated Symptoms: Fever (subjective), Cough, Sputum (yellow). denies: Vomiting, Diarrhea Ear Symptoms: Bilateral: None Severity: None Additional Complaint(s): 57 year old female presents to the emergency department complaining of a cough productive of yellow sputum production she has had since Saturday as well subjective fever she has had since yesterday. Patient states that these symptoms are associated with left lower rib pain. She reports thats he was seen by her PMD and given an unknown antibiotic. Last took tylenol at 10pm yesterday. PMD: Hubert Araiza Past Medical History Reviewed: Historical Data, Nursing Documentation, Vital Signs Vital Signs: Last Vital Signs Temp 97.9 F 05/25/18 19:21 Pulse 114 H 05/25/18 19:21 Resp 20 05/25/18 15:39 BP 121/72 05/25/18 19:21 Pulse Ox 98 05/25/18 19:21 - Medical History PMH: Asthma, Back Problems, Gastritis, HTN Denies: Migraine, Chronic Kidney Disease - Surgical History Surgical History: Back Surgery, Cholecystectomy, Hernia Repair, Tonsillectomy - Family History Family History: States: Unknown Family Hx - Home Medications Home Medications: Ambulatory Orders Medication Instructions Recorded Albuterol HFA [Ventolin HFA 90 2 puff IH Q4H PRN 04/15/17 mcg/actuation (8 g)] Cyclobenzaprine [Flexeril] 10 mg PO BID 04/15/17 DULoxetine [Cymbalta] 30 mg PO HS 04/15/17 Diclofenac Sodium [Voltaren] 50 mg PO BID PRN 04/15/17 Fluticasone/Salmeterol 250/50 1 puff IH Q12H 04/15/17 [Advair Diskus 250/50] Gabapentin [Neurontin] 300 mg PO BID 04/15/17 Lisinopril [Zestril] 10 mg PO DAILY 04/15/17 Omeprazole 40 mg PO DAILY 04/15/17 oxyCODONE/Acetaminophen [Percocet 1 tab PO DAILY PRN 04/15/17 5/325 mg Tab] Ciprofloxacin HCl [Cipro] 500 mg PO BID #10 tab 05/20/17 diaZEpam [Valium] 5 mg PO Q6 PRN #4 tab 06/11/17 Naproxen 1 tab PO Q12 PRN #10 tab 08/12/17 Azithromycin [Zithromax] 500 mg PO DAILY #3 tab 05/25/18 Prednisone 50 mg PO DAILY #4 tab 05/25/18 - Allergies Allergies/Adverse Reactions: Allergies Allergy/AdvReac Type Severity Reaction Status Date / Time latex Allergy RASH Verified 05/25/18 13:13 SOAP Allergy RASH Uncoded 05/25/18 13:21 Review of Systems ROS Statement: Except As Marked, All Systems Reviewed And Found Negative Constitutional: Positive for: Fever (subjective) Respiratory: Positive for: Cough (cough productive of yellow sputum) Gastrointestinal: Negative for: Nausea, Vomiting Musculoskeletal: Positive for: Other (lower rib pain) Physical Exam - Reviewed Nursing Documentation Reviewed: Yes Vital Signs Reviewed: Yes - Physical Exam Appears: Positive for: Non-toxic, No Acute Distress Head Exam: Positive for: ATRAUMATIC, NORMAL INSPECTION, NORMOCEPHALIC Skin: Positive for: Normal Color, Warm, Dry. Negative for: Rash Eye Exam: Positive for: Normal appearance, EOMI, PERRL. Negative for: Nystagmus ENT: Positive for: Normal ENT Inspection. Negative for: Nasal Congestion, Tonsillar Exudate, Tonsillar Swelling Neck: Positive for: Normal, Painless ROM, Supple Cardiovascular/Chest: Positive for: Regular Rate, Rhythm, Chest Non Tender. Negative for: Tachycardia Respiratory: Positive for: Normal Breath Sounds (Speaking in full sentences). Negative for: Rales, Rhonchi, Wheezing, Respiratory Distress Gastrointestinal/Abdominal: Positive for: Normal Exam, Bowel Sounds, Soft. Negative for: Tenderness, Mass, Guarding, Rebound Back: Positive for: Normal Inspection. Negative for: L CVA Tenderness, R CVA Tenderness Extremity: Positive for: Normal ROM. Negative for: Tenderness, Calf Tenderness , Deformity, Swelling Neurologic/Psych: Positive for: Alert, Oriented, Gait - Laboratory Results Result Diagrams: 05/25/18 14:07 05/25/18 14:07 - ECG O2 Sat by Pulse Oximetry: 100 (RA) Pulse Ox Interpretation: Normal Medical Decision Making Medical Decision Makin Initial Impression 57 year old male presenting with cough Differentials: Bronchitis, Pneumonia Initial Plan: * CT ABD & PELVIS w/o Contrast * EKG * CMP * Udip * CBC * PTT * Prothrombin Time * CXR * Albuterol 3 mL INH * NS 1000 ml IV 125 mls/hr * Solumedrol 125 mg IVP * Blood Culture * Urinalysis * Peak Flow Pre/post * Reevaluation Accession No. : [id number] Patient Name / ID : SPRING SORIANO / [id number] Exam Date : 05/25/2018 13:31:22 ( Approved ) Study Comment : Sex / Age : Creator : Dictator : Clerical Assigner : Center Receptionist : Bart Delarosa MD Approver2 : Report Date : My Comment : Date of service: 05/25/2018 HISTORY: Cough COMPARISON: Comparison chest 04/15/2017. TECHNIQUE: Chest PA and lateral FINDINGS: LUNGS: No active pulmonary disease. PLEURA: No significant pleural effusion identified. No pneumothorax apparent. CARDIOVASCULAR: Normal. OSSEOUS STRUCTURES: Re- demonstrated is an old fracture deformity of the left posterolateral 7th rib. Minor multilevel degenerative spondylosis of the thoracic spine VISUALIZED UPPER ABDOMEN: Normal. OTHER FINDINGS: None. IMPRESSION: No active disease. Accession No. : [id number] Patient Name / ID : SPRING SORIANO / [id number] Exam Date : 05/25/2018 14:34:14 ( Approved ) Study Comment : Sex / Age : F Creator : Bart Delarosa MD Dictator : Clerical Assigner : Center Receptionist : Bart Delarosa MD Approver2 : Report Date : 05/25/2018 16:06:08 My Comment : Date of service: 05/25/2018 PROCEDURE: CT Abdomen and Pelvis HISTORY: L flank pain COMPARISON: Comparison made with prior CT scan abdomen and pelvis dated 05/20/2017 TECHNIQUE: Contiguous axial images of the abdomen and pelvis. . Coronal and Sagittal reformats generated. Radiation dose: Total exam DLP = 852.65 mGy-cm. This CT exam was performed using one or more of the following dose reduction techniques: Automated exposure control, adjustment of the mA and/or kV according to patient size, and/or use of iterative reconstruction technique. FINDINGS: LOWER THORAX: There is patchy atelectasis and or infiltrate right posterior sulcus. Minimal passive type atelectasis left posterior sulcus. No evidence of effusion or basilar pneumothorax. Heart size normal. Small hiatal hernia. LIVER: Unremarkable. No gross lesion or ductal dilatation. GALLBLADDER AND BILE DUCTS: Cholecystectomy. PANCREAS: Unremarkable. No mass. No ductal dilatation. SPLEEN: Unremarkable. No splenomegaly. ADRENALS: No adrenal lesions. . KIDNEYS AND URETERS: . There is a 5 mm calculus seen in the midpole collecting system left kidney. There is mild left-sided hydronephrosis however no evidence of ureteral calculi is identified. Findings could represent a recently passed calculus. Clinical correlation with urinalysis. No evidence of right-sided nephrolithiasis or hydronephrosis. BLADDER: Urinary bladder is physiologically distended. No evidence intraluminal urinary bladder calculi. REPRODUCTIVE: Unremarkable. APPENDIX: Unremarkable. BOWEL: Diverticulosis. No radiographic evidence of acute diverticulitis. PERITONEUM: Unremarkable. No fluid collection. No free air. LYMPH NODES: Unremarkable. No enlarged lymph nodes. VASCULATURE: Unremarkable. No aortic aneurysm. BONES: No fracture or destructive lesion. OTHER FINDINGS: None. IMPRESSION: Left-sided nephrolithiasis. There is also mild left side hydronephrosis with no evidence of intraluminal ureteral calculi. Findings could be secondary to a recently passed calculus. Clinical correlation with urinalysis recommended. Diverticulosis. No radiographic evidence of acute diverticulitis. Patchy atelectasis and/or infiltrate right lung base. --------- Documented by Shavon Arriaga acting as a scribe for Sonya Cueva MD. All medical record entries made by the Scribe were at my direction and personally dictated by me. I have reviewed the chart and agree that the record accurately reflects my personal performance of the history, physical exam, medical decision making, and the department course for this patient. I have also personally directed, reviewed, and agree with the discharge instructions and disposition. Disposition - Clinical Impression Clinical Impression: Pneumonia - Disposition Referrals: Hubert Araiza MD [Family Provider] - Disposition: Routine/Home Disposition Time: 17:59 Condition: STABLE Prescriptions: Azithromycin [Zithromax] 500 mg PO DAILY #3 tab Prednisone 50 mg PO DAILY #4 tab Instructions: Pneumonia in Adults Forms: [employer] (Italian)
[2018-05-25 14:49] LABS: BASO % 0.6 % (0.0-2.0); EOS # 0.1 K/uL (0.0-0.7); EOS % 2.3 % (0.0-4.0); HEMOGLOBIN 13.9 g/dL (12.0-16.0); LYMPH # 1.3 K/uL (1.0-4.3); LYMPH % 22.7 % (20.0-40.0); MEAN CELL VOLUME 87.8 fl (81.0-99.0); MEAN CORPUSCULAR HEMOGLOBIN 29.2 pg (27.0-31.0); MEAN CORPUSCULAR HGB CONC 33.2 g/dL (33.0-37.0); MEAN PLATELET VOLUME 9.3 fl (7.2-11.7); MONO # 0.6 K/uL (0.0-0.8); MONO % 10.2 % (0.0-10.0); NEUT # 3.8 K/uL (1.8-7.0); NEUT % 64.2 % (50.0-75.0); RBC 4.78 Mil/uL (3.80-5.20); RED CELL DISTRIBUTION WIDTH 13.8 % (11.5-14.5); WHITE BLOOD COUNT 5.9 K/uL (4.8-10.8)
--- NOTE | 2018-05-25 15:00 | RAD ---
Date of service: 05/25/2018 HISTORY: Cough COMPARISON: Comparison chest 04/15/2017. TECHNIQUE: Chest PA and lateral FINDINGS: LUNGS: No active pulmonary disease. PLEURA: No significant pleural effusion identified. No pneumothorax apparent. CARDIOVASCULAR: Normal. OSSEOUS STRUCTURES: Re- demonstrated is an old fracture deformity of the left posterolateral 7th rib. Minor multilevel degenerative spondylosis of the thoracic spine VISUALIZED UPPER ABDOMEN: Normal. OTHER FINDINGS: None. IMPRESSION: No active disease.
[2018-05-25 15:04] LABS: ALB/GLOB RATIO 1.4 (1.0-2.1); ALBUMIN 4.2 g/dL (3.5-5.0); ALT/SGPT 39 U/L (9-52); AST/SGOT 32 U/L (14-36); BLOOD UREA NITROGEN 11 mg/dl (7-17); CALCIUM 9.2 mg/dL (8.4-10.2); GFR AFRICAN-AMERICAN > 60; GFR NON-AFRICAN AMERICAN > 60
[2018-05-25] MEDS ORDERED: Potassium Chloride 20 mEq ER Tab PO STA (15:07)
[2018-05-25 15:11] LABS: PARTIAL THROMBOPLASTIN TIME 30.1 Seconds (25.6-37.1); PROTHROMBIN TIME 11.5 Seconds (9.8-13.1)
[2018-05-25] MEDS ORDERED: Potassium Chloride 20 mEq ER Tab PO ONE (15:32)
[2018-05-25 15:39] VITALS: RESP 20
--- NOTE | 2018-05-25 16:08 | CT ---
Date of service: 05/25/2018 PROCEDURE: CT Abdomen and Pelvis HISTORY: L flank pain COMPARISON: Comparison made with prior CT scan abdomen and pelvis dated 05/20/2017 TECHNIQUE: Contiguous axial images of the abdomen and pelvis. . Coronal and Sagittal reformats generated. Radiation dose: Total exam DLP = 852.65 mGy-cm. This CT exam was performed using one or more of the following dose reduction techniques: Automated exposure control, adjustment of the mA and/or kV according to patient size, and/or use of iterative reconstruction technique. FINDINGS: LOWER THORAX: There is patchy atelectasis and or infiltrate right posterior sulcus. Minimal passive type atelectasis left posterior sulcus. No evidence of effusion or basilar pneumothorax. Heart size normal. Small hiatal hernia. LIVER: Unremarkable. No gross lesion or ductal dilatation. GALLBLADDER AND BILE DUCTS: Cholecystectomy. PANCREAS: Unremarkable. No mass. No ductal dilatation. SPLEEN: Unremarkable. No splenomegaly. ADRENALS: No adrenal lesions. . KIDNEYS AND URETERS: . There is a 5 mm calculus seen in the midpole collecting system left kidney. There is mild left-sided hydronephrosis however no evidence of ureteral calculi is identified. Findings could represent a recently passed calculus. Clinical correlation with urinalysis. No evidence of right-sided nephrolithiasis or hydronephrosis. BLADDER: Urinary bladder is physiologically distended. No evidence intraluminal urinary bladder calculi. REPRODUCTIVE: Unremarkable. APPENDIX: Unremarkable. BOWEL: Diverticulosis. No radiographic evidence of acute diverticulitis. PERITONEUM: Unremarkable. No fluid collection. No free air. LYMPH NODES: Unremarkable. No enlarged lymph nodes. VASCULATURE: Unremarkable. No aortic aneurysm. BONES: No fracture or destructive lesion. OTHER FINDINGS: None. IMPRESSION: Left-sided nephrolithiasis. There is also mild left side hydronephrosis with no evidence of intraluminal ureteral calculi. Findings could be secondary to a recently passed calculus. Clinical correlation with urinalysis recommended. Diverticulosis. No radiographic evidence of acute diverticulitis. Patchy atelectasis and/or infiltrate right lung base.
[2018-05-25 16:44] LABS: SQUAMOUS EPITHIAL 1 /hpf (0-5); URINE BILIRUBIN NEGATIVE (NEGATIVE); URINE BLOOD MODERATE (NEGATIVE); URINE CLARITY CLEAR (Clear); URINE COLOR YELLOW (YELLOW); URINE GLUCOSE (UA) NEG (Normal); URINE LEUKOCYTE ESTERASE TRACE Leu/uL (Negative); URINE PROTEIN NEGATIVE (NEGATIVE); URINE UROBILINOGEN 0.2-1.0 mg/dL (0.2-1.0)
[2018-05-25] MEDS ORDERED: Azithromycin 500 MG in Sodium Chloride 0.9% 250 ML IV STA (16:58)
[2018-05-25] MEDS ORDERED: cefTRIAXone (Rocephin) 1 gm Inj ONE (17:07)
[2018-05-25] MEDS ORDERED: Azithromycin 500 MG IV IVPB ONE (17:07)
[2018-05-25 19:23] VITALS: BP 121/72; PULSE 114; TEMP 97.9
--- NOTE | 2018-05-26 10:06 | CARD ---
APPROVED REPORT Date of service: 05/25/2018 EKG Measurement Heart [id number] OR 122P8 [id number] <Conclusion> Sinus tachycardia Otherwise normal ECG
[2018-06-04 07:18] VITALS: O2SAT 100
== END 2018-05-25 19:22 | disposition home or self-care (01) ==
LOC: H.ER 13:03
DX: J18.9 Pneumonia, unspecified organism (principal); I10 Essential (primary) hypertension; J45.909 Unspecified asthma, uncomplicated
CPT/HCPCS: 71046; 74176; 80053; 81003; 85025; 85610; 85730; 87040; 87086; 87181; 93005; 94640; 96365; 96375; 99283; J0456; J0696; J2930; J7030

== ENCOUNTER 2018-07-01 16:09 | Inpatient (IN) | payer MEDICARE, OTHER ==
[2018-07-01 16:09] VITALS: BMI 34.5
[2018-07-01 16:33] VITALS: RESP 16; TEMP 97.5
--- NOTE | 2018-07-01 17:22 | ED PDOC ---
HPI: Back Chief Complaint (Provider): flank pain History Per: Patient Additional Complaint(s): 57-year-old female with history of chronic back pain presents with left flank pain radiating to left lower quadrant times one day with associated chills. Patient also has nausea with no vomiting. Patient states she has history of pyelonephritis and also kidney stones. She took oxycodone earlier today which did not help her pain. Patient states she takes oxycodone from time to time secondary to chronic back pain. He denies any vomiting or diarrhea. Patient states current pain does not feel like her typical musculoskeletal back pain. PMD: Dr. Araiza <Dalila Tilley - Last Filed: 07/01/18 20:18> <Selvin Wall III - Last Filed: 07/01/18 22:10> Time Seen by Provider: 07/01/18 16:51 Chief Complaint (Nursing): Back Pain Past Medical History Reviewed: Historical Data, Nursing Documentation, Vital Signs Vital Signs: Last Vital Signs Temp 97.5 F L 07/01/18 16:31 Pulse 73 07/01/18 16:31 Resp 16 07/01/18 16:31 BP 128/84 07/01/18 16:31 Pulse Ox 96 07/01/18 16:31 - Medical History PMH: Asthma, Back Problems, Gastritis, HTN, Chronic Kidney Disease - Surgical History Surgical History: Back Surgery, Cholecystectomy, Hernia Repair, Tonsillectomy Other surgeries: Lipoma removal, left shoulder surgery - Family History Family History: States: No Known Family Hx - Living Arrangements Living Arrangements: With Family - Social History Current smoker - smoking cessation education provided: No Alcohol: None Drugs: Denies <Dalila Tilley - Last Filed: 07/01/18 20:18> Vital Signs: Last Vital Signs Temp 97.5 F L 07/01/18 21:13 Pulse 62 07/01/18 21:13 Resp 16 07/01/18 21:13 BP 114/71 07/01/18 21:13 Pulse Ox 97 07/01/18 21:13 <Selvin Wall III - Last Filed: 07/01/18 22:10> - Home Medications Home Medications: Ambulatory Orders Medication Instructions Recorded Albuterol HFA [Ventolin HFA 90 2 puff IH Q4H PRN 04/15/17 mcg/actuation (8 g)] Cyclobenzaprine [Flexeril] 10 mg PO BID 04/15/17 Fluticasone/Salmeterol 250/50 1 puff IH Q12H 04/15/17 [Advair Diskus 250/50] Gabapentin [Neurontin] 300 mg PO BID 04/15/17 Lisinopril [Zestril] 10 mg PO DAILY 04/15/17 Omeprazole 40 mg PO DAILY 04/15/17 oxyCODONE/Acetaminophen [Percocet 1 tab PO DAILY PRN 04/15/17 5/325 mg Tab] - Allergies Allergies/Adverse Reactions: Allergies Allergy/AdvReac Type Severity Reaction Status Date / Time latex Allergy RASH Verified 07/01/18 16:31 detergent Allergy RASH Uncoded 07/01/18 16:31 SOAP Allergy RASH Uncoded 07/01/18 16:31 Against Medical Advice - AMA Patient Left Against Medical Advice: The patient declines admission to the hospital and wishes to leave the Emergency Department. This action is against my medical advice. This decision was made with informed refusal. The patient was told that admission to the hospital is necessary. Explanation of the reasons why were discussed. The risks of leaving were explained to the patient and include, but are not limited to, worsening of known or currently unknown conditions, permanent disability and from undiagnosed or untreated conditions. The patient has the capacity to make this informed decision and understands my explanation of the current medical problem and risks of leaving. The patient voluntarily accepts these risks and signed an AMA form documenting our conversation. The patient was given the opportunity to ask questions and reconsider. The patient was encouraged to return to the Emergency Department at any time for further care. <Selvin Wall III - Last Filed: 07/01/18 22:10> Review of Systems ROS Statement: Except As Marked, All Systems Reviewed And Found Negative Constitutional: Positive for: Chills. Negative for: Fever Cardiovascular: Negative for: Chest Pain Respiratory: Negative for: Cough Gastrointestinal: Positive for: Nausea, Abdominal Pain (Left lower quadrant). Negative for: Vomiting Genitourinary Female: Negative for: Dysuria, Frequency, Incontinence Musculoskeletal: Positive for: Back Pain (Left flank pain) <Dalila Tilley - Last Filed: 07/01/18 20:18> Physical Exam - Reviewed Nursing Documentation Reviewed: Yes Vital Signs Reviewed: Yes - Physical Exam Appears: Positive for: Well, Non-toxic, No Acute Distress Skin: Positive for: Normal Color. Negative for: Rash Eye Exam: Positive for: Normal appearance Cardiovascular/Chest: Positive for: Regular Rate, Rhythm Respiratory: Positive for: Normal Breath Sounds Gastrointestinal/Abdominal: Positive for: Tenderness (Mild tenderness left lower quadrant with no distention, rebound or guarding) Back: Positive for: L CVA Tenderness. Negative for: R CVA Tenderness, Vertebral Tenderness Extremity: Positive for: Normal ROM Neurologic/Psych: Positive for: Alert, Oriented <PhilippDalila penny - Last Filed: 07/01/18 20:18> - Laboratory Results Result Diagrams: 07/01/18 17:30 07/01/18 17:30 Urine dip results: Positive for: Blood (small). Negative for: Leukocyte Esterase, Nitrate, Ketones, Glucose, Bilirubin, Protein - ECG O2 Sat by Pulse Oximetry: 96 Pulse Ox Interpretation: Normal - Other Rad CT abd and pelvis without contrast X-Ray: Read By Radiologist X-Ray Interpretation: see below <Dalila Tilley - Last Filed: 07/01/18 20:18> - Laboratory Results Result Diagrams: 07/01/18 17:30 07/01/18 17:30 <Selvin Wall III - Last Filed: 07/01/18 22:10> Medical Decision Making Medical Decision Makin-year-old female with flank pain Plan: CBC CMP Lipase UA/culture IVF CT abd and pelvis without contrast IV toradol IV zofran CT: IMPRESSION: A 5 mm proximal left renal ureterolith causes moderate hydroureteronephrosis. Lipase is elevated at 2747. Patient denies history of pancreatitis, denies any alcohol abuse. PMD is Dr. Araiza who does not admit here, case d/w medicine correctional treatment specialist Dr Ibarra who states to admit patient to med/surg and consult GI and Urology. Case d/w Dr. Mcmahon who will see patient in AM, states to make patient NPO and administer IVF Case also d/w GI fellow, Dr. Faulkner, covering for Dr. Trujillo who states to keep patient NPO and start LR IV. <Dalila Tilley - Last Filed: 07/01/18 20:18> Medical Decision Making: attending note patient was admitted given ureteral obstruction and pancreatitis, prior to transfer to floor told RN she needs to leave to attend to her pets. I re-examined patient she stated she was feeling better but must leave to attend to pets and her son cannot help her. I explained risks including kidney damage, worsening pancreatitis with organ failure, system infection or other complications. She understood these risks but still wishes to leave. Signed AMA witness by Christina ARENAS 10pm <Selvin Wall III - Last Filed: 07/01/18 22:10> Disposition - Patient ED Disposition Is Patient to be Admitted: Yes - Disposition Disposition Time: 20:10 - Pt Status Changed To: Hospital Disposition Of: Inpatient - Admit Certification Admit to Inpatient:: After my assessment, the patient will require hospitalization for at least two midnights. This is because of the severity of symptoms shown, intensity of services needed, and/or the medical risk in this patient being treated as an outpatient. <Dalila Tilley - Last Filed: 07/01/18 20:18> <Selvin Wall III - Last Filed: 07/01/18 22:10> - Clinical Impression Clinical Impression: Pancreatitis, Ureteral stone, Renal colic, Left against medical advice - Disposition Condition: FAIR Results - Lab Results Lab Results: 07/01/18 07/01/18 17:30 17:30 WBC 12.1 H D RBC 4.93 Hgb 14.3 Hct 43.3 MCV 87.9 MCH 29.0 MCHC 33.0 RDW 13.7 Plt Count 233 MPV 9.0 Neut % (Auto) 72.9 Lymph % (Auto) 16.7 L Carver % (Auto) 8.6 Eos % (Auto) 1.0 Baso % (Auto) 0.8 Neut # (Auto) 8.8 H Lymph # (Auto) 2.0 Carver # (Auto) 1.0 H Eos # (Auto) 0.1 Baso # (Auto) 0.1 Sodium 141 Potassium 3.9 Chloride 105 Carbon Dioxide 26 Anion Gap 14 BUN 15 Creatinine 1.0 Est GFR ( Amer) > 60 Est GFR (Non-Af Amer) 57 Random Glucose 103 Calcium 9.7 Total Bilirubin 0.8 AST 50 H D ALT 47 Alkaline Phosphatase 109 Total Protein 7.1 Albumin 4.2 Globulin 2.9 Albumin/Globulin Ratio 1.5 Lipase 2747 H <Dalila Tilley - Last Filed: 07/01/18 20:18> - Lab Results Lab Results: 07/01/18 07/01/18 07/01/18 17:30 17:30 17:30 WBC 12.1 H D RBC 4.93 Hgb 14.3 Hct 43.3 MCV 87.9 MCH 29.0 MCHC 33.0 RDW 13.7 Plt Count 233 MPV 9.0 Neut % (Auto) 72.9 Lymph % (Auto) 16.7 L Carver % (Auto) 8.6 Eos % (Auto) 1.0 Baso % (Auto) 0.8 Neut # (Auto) 8.8 H Lymph # (Auto) 2.0 Carver # (Auto) 1.0 H Eos # (Auto) 0.1 Baso # (Auto) 0.1 Sodium 141 Potassium 3.9 Chloride 105 Carbon Dioxide 26 Anion Gap 14 BUN 15 Creatinine 1.0 Est GFR ( Amer) > 60 Est GFR (Non-Af Amer) 57 Random Glucose 103 Calcium 9.7 Total Bilirubin 0.8 AST 50 H D ALT 47 Alkaline Phosphatase 109 Total Protein 7.1 Albumin 4.2 Globulin 2.9 Albumin/Globulin Ratio 1.5 Lipase 2747 H Urine Color Yellow Urine Clarity Clear Urine pH 5.0 Ur Specific [place] 1.011 Urine Protein Negative Urine Glucose (UA) Neg Urine Ketones Negative Urine Blood Small Urine Nitrate Negative Urine Bilirubin Negative Urine Urobilinogen 0.2-1.0 Ur Leukocyte Esterase Neg Urine RBC (Auto) 4 H Urine Microscopic WBC < 1 Ur Squamous Epith Cells < 1 Hyaline Casts 0-2 <Selvin Wall III - Last Filed: 07/01/18 22:10>
[2018-07-01] MEDS ORDERED: Sodium Chloride 0.9% 1,000 ML IV STA ×2 (17:34→20:06)
[2018-07-01 17:38] LABS: BASO # 0.1 K/uL (0.0-0.2); BASO % 0.8 % (0.0-2.0); EOS # 0.1 K/uL (0.0-0.7); HEMOGLOBIN 14.3 g/dL (12.0-16.0); LYMPH % 16.7 % (20.0-40.0); MEAN CELL VOLUME 87.9 fl (81.0-99.0); MONO % 8.6 % (0.0-10.0); NEUT # 8.8 K/uL (1.8-7.0); NEUT % 72.9 % (50.0-75.0); RBC 4.93 Mil/uL (3.80-5.20); RED CELL DISTRIBUTION WIDTH 13.7 % (11.5-14.5); WHITE BLOOD COUNT 12.1 K/uL (4.8-10.8)
[2018-07-01 17:49] LABS: SQUAMOUS EPITHIAL < 1 /hpf (0-5); URINE BILIRUBIN NEGATIVE (NEGATIVE); URINE BLOOD SMALL (NEGATIVE); URINE CLARITY CLEAR (Clear); URINE COLOR YELLOW (YELLOW); URINE GLUCOSE (UA) NEG (Normal); URINE HYALINE CAST 0-2 /hpf (0-2); URINE LEUKOCYTE ESTERASE NEG Leu/uL (Negative); URINE PROTEIN NEGATIVE (NEGATIVE); URINE UROBILINOGEN 0.2-1.0 mg/dL (0.2-1.0)
[2018-07-01 17:53] LABS: ALB/GLOB RATIO 1.5 (1.0-2.1); ALBUMIN 4.2 g/dL (3.5-5.0); ALT/SGPT 47 U/L (9-52); AST/SGOT 50 U/L (14-36); BLOOD UREA NITROGEN 15 mg/dl (7-17); CALCIUM 9.7 mg/dL (8.4-10.2); GFR AFRICAN-AMERICAN > 60; GFR NON-AFRICAN AMERICAN 57
[2018-07-01 18:14] LABS: LIPASE 2747 U/L (23-300)
[2018-07-01 21:14] VITALS: BP 114/71; PULSE 62; O2SAT 97
--- NOTE | 2018-07-02 09:28 | CP.PCM.DIS ---
Provider - Provider Date of Admission: 07/01/18 20:12 Attending physician: Ashu Ibarra MD Time Spent in preparation of Discharge (in minutes): 5 Hospital Course - Lab Results Lab Results: Most Recent Lab Values WBC 12.1 K/uL (4.8-10.8) H D 07/01/18 17:30 RBC 4.93 Mil/uL (3.80-5.20) 07/01/18 17:30 Hgb 14.3 g/dL (12.0-16.0) 07/01/18 17:30 Hct 43.3 % (34.0-47.0) 07/01/18 17:30 MCV 87.9 fl (81.0-99.0) 07/01/18 17:30 MCH 29.0 pg (27.0-31.0) 07/01/18 17:30 MCHC 33.0 g/dL (33.0-37.0) 07/01/18 17:30 RDW 13.7 % (11.5-14.5) 07/01/18 17:30 Plt Count 233 K/uL (130-400) 07/01/18 17:30 MPV 9.0 fl (7.2-11.7) 07/01/18 17:30 Neut % (Auto) 72.9 % (50.0-75.0) 07/01/18 17:30 Lymph % (Auto) 16.7 % (20.0-40.0) L 07/01/18 17:30 Morrison % (Auto) 8.6 % (0.0-10.0) 07/01/18 17:30 Eos % (Auto) 1.0 % (0.0-4.0) 07/01/18 17:30 Baso % (Auto) 0.8 % (0.0-2.0) 07/01/18 17:30 Neut # (Auto) 8.8 K/uL (1.8-7.0) H 07/01/18 17:30 Lymph # (Auto) 2.0 K/uL (1.0-4.3) 07/01/18 17:30 Morrison # (Auto) 1.0 K/uL (0.0-0.8) H 07/01/18 17:30 Eos # (Auto) 0.1 K/uL (0.0-0.7) 07/01/18 17:30 Baso # (Auto) 0.1 K/uL (0.0-0.2) 07/01/18 17:30 Sodium 141 mmol/l (132-148) 07/01/18 17:30 Potassium 3.9 MMOL/L (3.6-5.0) 07/01/18 17:30 Chloride 105 mmol/L (98-107) 07/01/18 17:30 Carbon Dioxide 26 mmol/L (22-30) 07/01/18 17:30 Anion Gap 14 (10-20) 07/01/18 17:30 BUN 15 mg/dl (7-17) 07/01/18 17:30 Creatinine 1.0 mg/dl (0.7-1.2) 07/01/18 17:30 Est GFR ( Amer) > 60 07/01/18 17:30 Est GFR (Non-Af Amer) 57 07/01/18 17:30 Random Glucose 103 mg/dL (65-105) 07/01/18 17:30 Calcium 9.7 mg/dL (8.4-10.2) 07/01/18 17:30 Total Bilirubin 0.8 mg/dl (0.2-1.3) 07/01/18 17:30 AST 50 U/L (14-36) H D 07/01/18 17:30 ALT 47 U/L (9-52) 07/01/18 17:30 Alkaline Phosphatase 109 U/L (38-126) 07/01/18 17:30 Total Protein 7.1 G/DL (6.3-8.2) 07/01/18 17:30 Albumin 4.2 g/dL (3.5-5.0) 07/01/18 17:30 Globulin 2.9 gm/dL (2.2-3.9) 07/01/18 17:30 Albumin/Globulin Ratio 1.5 (1.0-2.1) 07/01/18 17:30 Lipase 2747 U/L (23-300) H 07/01/18 17:30 Urine Color Yellow (YELLOW) 07/01/18 17:30 Urine Clarity Clear (Clear) 07/01/18 17:30 Urine pH 5.0 (5.0-8.0) 07/01/18 17:30 Ur Specific [place] 1.011 (1.003-1.030) 07/01/18 17:30 Urine Protein Negative mg/dL (NEGATIVE) 07/01/18 17:30 Urine Glucose (UA) Neg mg/dL (Normal) 07/01/18 17:30 Urine Ketones Negative mg/dL (NEGATIVE) 07/01/18 17:30 Urine Blood Small (NEGATIVE) 07/01/18 17:30 Urine Nitrate Negative (NEGATIVE) 07/01/18 17:30 Urine Bilirubin Negative (NEGATIVE) 07/01/18 17:30 Urine Urobilinogen 0.2-1.0 mg/dL (0.2-1.0) 07/01/18 17:30 Ur Leukocyte Esterase Neg [place]/uL (Negative) 07/01/18 17:30 Urine RBC (Auto) 4 /hpf (0-3) H 07/01/18 17:30 Urine Microscopic WBC < 1 /hpf (0-5) 07/01/18 17:30 Ur Squamous Epith Cells < 1 /hpf (0-5) 07/01/18 17:30 Hyaline Casts 0-2 /hpf (0-2) 07/01/18 17:30 - Hospital Course Hospital Course: PT SIGNED OUT AGAINST MEDICAL ADVISE AND WAS NOT SEEN Discharge Plan - Follow Up Plan Condition: FAIR Disposition: HOME/ ROUTINE Instructions: Pancreatitis, Renal Colic, Leaving Against Medical Advice Additional Instructions: Followup with your doctor PARAM. Return to ER for any abdominal or flank pain, fever, vomiting or any concern.
--- NOTE | 2018-07-02 11:43 | CT ---
Date of service: 07/01/2018 PROCEDURE: CT Abdomen and Pelvis without intravenous contrast HISTORY: Left flank pain, hematuria COMPARISON: 05/25/2018. TECHNIQUE: CT scan of the abdomen and pelvis was performed without administration of intravenous contrast. Oral contrast was not administered. Coronal and sagittal reformatted images were obtained. . Radiation dose: Total exam DLP = 848.19 mGy-cm. This CT exam was performed using one or more of the following dose reduction techniques: Automated exposure control, adjustment of the mA and/or kV according to patient size, and/or use of iterative reconstruction technique. FINDINGS: LOWER THORAX: There is dependent atelectasis in the lung bases. LIVER: Normal in size. No intrahepatic ductal dilatation. GALLBLADDER AND BILE DUCTS: Surgically absent. PANCREAS: Normal in size. No ductal dilatation. SPLEEN: Normal in size. ADRENALS: Normal in size. No discrete nodule. KIDNEYS AND URETERS: The right kidney is normal in size without hydronephrosis or nephrolithiasis. There is interval passage of known left lower pole renal stone which is now identified in the proximal ureteral at the level of L3. There is moderate hydronephrosis, dilatation of proximal ureteral, edema and enlargement of the left kidney and perinephric fat stranding. VASCULATURE: No aortic aneurysm. BOWEL: The small bowel loops are normal in caliber. The colon is normal in size. Extensive colonic diverticulosis without CT evidence for acute diverticulitis. No bowel dilatation or wall thickening. No bowel obstruction. APPENDIX: Normal appendix. PERITONEUM: No free fluid. No free air. LYMPH NODES: No enlarged lymph nodes. BLADDER: Well distended and grossly normal in appearance. REPRODUCTIVE: The uterus is normal in size BONES: No acute fracture. Multilevel degenerative changes with grade 1 anterior listhesis of L4 on L5. OTHER FINDINGS: There is a small sliding hiatal hernia. IMPRESSION: 1. Moderate left obstructive uropathy resulting from a 6 mm stone in the proximal ureter. 2. Extensive colonic diverticulosis without CT evidence for acute diverticulitis. A preliminary report was provided by [employer].
== END 2018-07-01 22:12 | disposition left against medical advice (07) | DRG 439 ==
LOC: H.ER 16:09 → H.ERHOLD 20:12
PROVIDERS: ADMIT Internal Medicine Pulmonary Disease; ATTEND Internal Medicine Pulmonary Disease
DX: K85.90 Acute pancreatitis without necrosis or infection, unspecified (principal); N20.1 Calculus of ureter; N23 Unspecified renal colic; Z87.442 Personal history of urinary calculi; G89.29 Other chronic pain; J45.909 Unspecified asthma, uncomplicated; Z91.040 Latex allergy status; K29.70 Gastritis, unspecified, without bleeding; I12.9 Hypertensive chronic kidney disease with stage 1 through stage 4 chronic kidney disease, or unspecified chronic kidney disease; N18.9 Chronic kidney disease, unspecified

== ENCOUNTER 2018-08-18 07:22 | Day surgery (SDC) | payer MEDICARE, MEDICAID ==
[2018-08-13 09:21] VITALS: BMI 31.6
[2018-08-18] MEDS ORDERED: Lactated Ringer's 1,000 ML IV ONE (08:08)
[2018-08-18] MEDS ORDERED: Succinylcholine 200 mg/10 ml Inj IV ONE (08:30)
[2018-08-18] MEDS ORDERED: Midazolam 2 MG/2 ML VIAL ONE (08:41)
[2018-08-18] MEDS ORDERED: Propofol 10 mg/ml Inj (20 ML) ONE (08:41)
[2018-08-18] MEDS ORDERED: cefTRIAXone (Rocephin) 1 gm Inj ONE (08:56)
[2018-08-18] MEDS ORDERED: cefTRIAXone (Rocephin) 1 gm Inj IM ONE (09:30)
[2018-08-18] MEDS ORDERED: Iohexol 300 10 ML ONE (09:54)
[2018-08-18] MEDS ORDERED: Iohexol 300 10 ML IJ ONE (09:55)
[2018-08-18] MEDS ORDERED: HYDROmorphone 0.5 mg/0.5 ml ISec IVP PRN (10:15)
[2018-08-18 10:52] VITALS: RESP 20
[2018-08-18 12:46] VITALS: BP 125/83; PULSE 97; TEMP 97.8; O2SAT 97
[2018-08-18] MEDS ORDERED: Oxycodone/Acetaminophen 5/325 mg Tab PO ONE ×2 (12:50→13:00)
--- NOTE | 2018-08-18 13:05 | RAD ---
Date of service: 08/18/2018 PROCEDURE: Intraoperative Fluoroscopy. HISTORY: CYSTOSCOPY FINDINGS: Fluoroscopic assistance was provided for left retrograde study and stent placement. Please refer to the operative report from [facility]. Total fluoroscopic time (continuous mode) utilized during the procedure 60.0 (seconds).
--- NOTE | 2018-08-18 20:21 | OP ---
PROCEDURE DATE: 08/18/2018 PREOPERATIVE DIAGNOSIS: Left renal colic secondary to left residual ureteropelvic junction stone. DESCRIPTION OF PROCEDURE: The patient was placed on the operating room table in a dorsal lithotomy position after she was given general anesthesia. The area of the groin was draped and prepped in a sterile bladder, entered into the bladder atraumatically. She has an existing J-stent that has been there for a while because of 2 prior lithotripsies that were done previous to this procedure. The area of the ureteral orifice was completely edematous. I was able to grasp the end of the double J-stent and through that opening I placed a sensor wire as a backup wire. After that, I was able to reengage the ureter under direct vision and went to the level of the proximal ureter, at which point there was a stone that I was able to see and that was probably the only stone that was seen on the KUB post the second lithotripsy. I was able to basket it and remove it entirely. I did a second-look procedure to see if there were any residual stones. I got to the level under direct vision of the upper renal pelvis and calyx. I did not see any other stones there. I did a retrograde pyelogram. Unfortunately from placing so much water, there was some extravasation of dye, but I did not see any residual shadowing of stones at this point. I removed the ureteroscope and because of the edema that I saw at the ureteral orifice and in the ureter itself around the area of the large stone, I then decided to reinsert a 7-Czech multi-length double J-stent for several days just to get her over this period postoperatively. The patient then was taken from the operating room in good condition. The stone was sent for specimen analysis. Nerissa Mcmahon MD
== END 2018-08-18 14:50 | disposition home or self-care (01) ==
LOC: H.OPSURG 07:22
PROVIDERS: ATTEND Urology
DX: N20.1 Calculus of ureter (principal); J45.909 Unspecified asthma, uncomplicated; I10 Essential (primary) hypertension; M54.9 Dorsalgia, unspecified; N23 Unspecified renal colic
CPT/HCPCS: 52353; 82355; 88304; C1769; C2617; J0330; J0696; J1170; J2001; J2250; J2704; J3010; J7120; Q9967